=== PATIENT | male | born 1995 | race African-American/Black ===

== ENCOUNTER 2023-02-26 13:08 | Emergency (ER) | payer SELFPAY ==
--- NOTE | ~2023-02-26 | US_ITS ---
EXAMINATION: Ultrasound extremity nonvascular CLINICAL INFORMATION: Right upper posterior leg hematoma COMPARISON: None. TECHNIQUE: Grayscale and color imaging of the right lateral posterior upper thigh in the area of palpable abnormality FINDINGS: There is a large minimally complex superficial fluid collection measuring 9.4 x 5.8 x 1.2 cm in dimension. This contains several septations and is nonvascular. Ultrasound appearance is nonspecific. This could represent a liquefying hematoma. US/US extremity nonvascular IMPRESSION: 9.4 x 5.8 x 1.2 cm right thigh minimally complex fluid collection.
[2023-02-26 13:55] VITALS: BP 137/83; PULSE 81; RESP 16; TEMP 36.8; O2SAT 100; BMI 23.5
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
[2023-02-26 15:45] VITALS: BP 120/69; PULSE 65; RESP 16; TEMP 36.7; O2SAT 100
--- NOTE | 2023-02-26 15:46 | PC.NURSE ---
patient a&ox3, c/o 02/27 rt thigh pain, vss, pt awaiting provider, will continue to monitor
[2023-02-26 16:52] LABS: MANUAL DIFF FLAG NO
[2023-02-26 16:59] LABS: Basophils Absolute Auto 0.1 X10*3/uL (0.0-0.2); Basophils Percent Auto 0.6 % (0-2); Eosinophils Absolute Auto 0.3 X10*3/uL (0.0-0.4); Eosinophils Percent Auto 3.8 % (0-4); Hematocrit 40.4 % (42.0-52.0); Hemoglobin 13.3 g/dl (14.0-18.0); Imm Gran Abs Auto 0.01 X10*3/uL (0.00-0.03); Imm Gran Pct Auto 0.1 % (0.0-0.4); Lymphocytes Absolute Auto 2.5 X10*3/uL (1.2-4.9); Mean Corpuscular HGB Conc 32.9 g/dl (31.0-36.0); Mean Corpuscular Hemoglobin 28.4 pg (27.0-33.0); Mean Corpuscular Volume 86.3 fL (80.0-98.0); Mean Platelet Volume 9.3 fL (9.4-12.4); Monocytes Percent Auto 13.1 % (2-11); Neutrophils Percent Auto 50.4 % (45-73); Platelet Count 264 X10*3/uL (160-400); Red Blood Count 4.68 X10*6/uL (4.60-5.80); Red Cell Distribution Width 13.8 % (11.0-16.0); White Blood Count 7.9 X10*3/uL (4.8-10.8)
[2023-02-26 17:14] LABS: Anion Gap 14 (12-20); Blood Urea Nitrogen 17 mg/dL (9-16); Calcium 9.5 mg/dL (8.4-10.2); Carbon Dioxide 24 mmol/L (22-29); Chloride 107 mmol/L (96-108); Creatinine Clr Calc Pharmacy 97.3; Estimated Glomerular Filt Rate > 60; Glucose Random 91 mg/dL (60-115); Potassium 4.5 mmol/L (3.3-5.1); Sodium 140 mmol/L (135-145)
== END 2023-02-26 17:46 | disposition home or self-care (01) ==
PROVIDERS: Physician Assistant; Emergency Provider Student in an Organized Health Care Education/Training Program
DX: S81.801A Unspecified open wound, right lower leg, initial encounter (principal); L02.415 Cutaneous abscess of right lower limb; X58.XXXA Exposure to other specified factors, initial encounter; Y93.9 Activity, unspecified; Y92.9 Unspecified place or not applicable; Y99.9 Unspecified external cause status
CPT/HCPCS: 10060; 36415; 76882; 80048; 85025; 99284